=== PATIENT | female | born 1940 | race Caucasian/White ===

== ENCOUNTER 2017-12-30 22:22 | Emergency (ER) | payer MEDICARE, OTHER ==
[~2017-12-30] VITALS: Ht 157.5 cm; Wt 96.6 kg
[~2017-12-30 22:22] MED LIST: (None)10 MG OR; ASPIRIN EC81 MG PO; FIORICET PO; IRON25 MG OR; KEFLEX500 MG OR; LASIX 40 MG TAB40 MG PO; LOSARTAN POT25 MG PO; MECLIZINE HCL25 MG PO; MIRAPEX1 MG OR; POTASSIUM25 MEQ OR; PROAIR HFA IN; SIMVASTATIN40 MG PO; VERAPAMIL120 M2 PO
[2017-12-30 23:28] LABS: HEMATOCRIT 36.1 % (37.0-47.0); HEMOGLOBIN 11.6 g/dl (12.0-16.0); IMMATURE GRANULOCYTES 0.4 % (0.0-1.0); MEAN CELL VOLUME 82.8 fL CALC (80.0-100.0); MEAN CORPUSCULAR HGB 26.6 pG CALC (26.0-32.0); MEAN CORPUSCULAR HGB CONC 32.1 g/L CALC (32.0-36.0); NEUT# 5.71 thou/uL (2.00-7.15); RED BLOOD COUNT 4.36 mill/uL (4.20-5.60); RED CELL DISTRI WIDTH 13.4 % (11.5-15.5)
[2017-12-30 23:30] LABS: URINE BILIRUBIN - DIPSTICK NEGATIVE (NEGATIVE); URINE BLOOD DIPSTICK TRACE-LYSED (NEGATIVE); URINE CLARITY CLEAR; URINE COLOR YELLOW; URINE GLUCOSE - DIPSTICK NEGATIVE (NEGATIVE); URINE KETONE NEGATIVE (NEGATIVE); URINE LEUK ESTERASE MODERATE (NEGATIVE); URINE NITRITE - DIPSTICK NEGATIVE (Negative); URINE PROTEIN - DIPSTICK NEGATIVE (NEG-TRACE); URINE UROBILINOGEN - DIPSTICK 0.2 E.U./dL (0.2)
[2017-12-30 23:39] LABS: URINE RBC 0-2 RBC/hpf (0-5); URINE SQUAMOUS EPITHELIAL CELL FEW EPI/hpf (0-FEW)
[2017-12-30 23:48] LABS: ALBUMIN 4.1 g/dL (3.2-5.0); ALKALINE PHOSPHATASE 150 u/l (38-126); AMYLASE 81 u/l (30-110); ANION GAP 17 (6-22 (CALC)); BILIRUBIN, TOTAL 0.3 mg/dL (0.0-1.4); BUN 12 mg/dL (8-23); BUN/CREATININE RATIO 13 (12-20 (CALC)); CARBON DIOXIDE 18 mmol/l (22-30); CHLORIDE 112 mmol/l (95-108); CREATININE 0.9 mg/dL (0.5-1.0); GFR > 60 ML/MIN (>=60 (CALC)); GFR FOR AFR.AMER. > 60 ML/MIN (>=60 (CALC)); LIPASE 365 u/l (23-300); POTASSIUM 4.1 mmol/l (3.5-5.1); SGOT/AST 35 u/l (9-36); SGPT/ALT 31 u/l (11-66); SODIUM 143 mmol/l (137-146)
[2017-12-31] MEDS ORDERED: CIPROFLOXACN500 MG PO (01:01)
[2017-12-31 01:17] VITALS: BP 123/60
== END 2017-12-31 01:18 | disposition home or self-care (01) ==
LOC: ED 22:22
PROVIDERS: Emergency Medicine
DX: R19.7 Diarrhea, unspecified (principal); I10 Essential (primary) hypertension; J45.909 Unspecified asthma, uncomplicated; I25.10 Atherosclerotic heart disease of native coronary artery without angina pectoris

== ENCOUNTER 2019-11-04 | Emergency (ER) | payer MEDICARE, OTHER ==
[~2019-11-04] MED LIST changes: +CIPROFLOXACN500 MG PO
[2019-11-04 08:49] LABS: HEMATOCRIT 37.5 % (37.0-47.0); HEMOGLOBIN 12.1 g/dl (12.0-16.0); IMMATURE GRANULOCYTES 0.5 % (0.0-5.0); MEAN CELL VOLUME 83.3 fL CALC (80.0-100.0); MEAN CORPUSCULAR HGB 26.9 pG CALC (26.0-32.0); MEAN CORPUSCULAR HGB CONC 32.3 g/L CALC (32.0-36.0); NEUT# 5.02 thou/uL (2.00-7.15); RED BLOOD COUNT 4.5 mill/uL (4.20-5.60); RED CELL DISTRI WIDTH 15.9 % (11.5-15.5)
[2019-11-04 09:07] LABS: ANION GAP 16 (6-22 (CALC)); BUN 17 mg/dL (8-23); BUN/CREATININE RATIO 24 (12-20 (CALC)); CARBON DIOXIDE 20 mmol/l (22-30); CHLORIDE 104 mmol/l (95-108); CREATININE 0.7 mg/dL (0.5-1.0); GFR > 60 ML/MIN (>=60 (CALC)); GFR FOR AFR.AMER. > 60 ML/MIN (>=60 (CALC)); POTASSIUM 3.8 mmol/l (3.5-5.1); SODIUM 136 mmol/l (137-146)
[2019-11-04] MEDS ORDERED: IPRATROPIU0.5 MG/3 M IN (09:50)
[2019-11-04] MEDS ORDERED: PROAIR HFA108 MCG/AC PO (09:50)
[2019-11-04] MEDS ORDERED: DOXY-CAPS100 MG PO (09:50)
[2019-11-04] MEDS ORDERED: PREDNISONE50 MG PO (09:50)
== END 2019-11-04 10:41 | disposition home or self-care (01) ==
PROVIDERS: Family Medicine
DX: J45.901 Unspecified asthma with (acute) exacerbation (principal); I10 Essential (primary) hypertension; I25.10 Atherosclerotic heart disease of native coronary artery without angina pectoris; R06.02 Shortness of breath

== ENCOUNTER 2021-12-30 12:43 | Emergency (ER) | payer MEDICARE, OTHER ==
[~2021-12-30] VITALS: Ht 157.5 cm; Wt 75.0 kg
[~2021-12-30 12:43] MED LIST changes: +ALLOPURINOL XX; +DOXY-CAPS100 MG PO; +IPRATROPIU0.5 MG/3 M IN; +PREDNISONE50 MG PO; +PROAIR HFA108 MCG/AC PO; +ULTRAM50 M1 PO
[2021-12-30 13:13] VITALS: BP 106/49
[2021-12-30 13:17] VITALS: BP 139/65
[2021-12-30 13:31] VITALS: BP 123/56
[2021-12-30 15:40] VITALS: BP 123/56
== END 2021-12-30 15:40 | disposition home or self-care (01) ==
LOC: ED 12:43
DX: S06.0X0A Concussion without loss of consciousness, initial encounter (principal); S00.83XA Contusion of other part of head, initial encounter; I10 Essential (primary) hypertension; J45.909 Unspecified asthma, uncomplicated; I25.10 Atherosclerotic heart disease of native coronary artery without angina pectoris; W01.198A Fall on same level from slipping, tripping and stumbling with subsequent striking against other object, initial encounter